=== PATIENT | female | born 2000 | race Asian ===

== ENCOUNTER 2024-01-23 08:34 | Outpatient (CLI) | payer BC, SELFPAY ==
--- NOTE | ~2024-01-23 | US_ITS ---
US breast LT limited DATE: 01/23/2024 09:06 INDICATION: Left breast lump for 2 months TECHNIQUE: Real time imaging and color flow imaging was targeted to the area of clinical complaint of left breast lump 12:00 2 cm from nipple COMPARISON: None FINDINGS: No suspicious mass or shadowing, abnormal vascularity, cyst or other significant abnormalit y is detected at the area of complaint at 12:00 2 cm from nipple. IMPRESSION: Negative Reviewed, dictated and finalized at Location [facility]. Reviewed, dictated and finalized at location A. IMPRESSION: Negative
== END 2024-01-23 08:35 | disposition home or self-care (01) ==
DX: N63.20 Unspecified lump in the left breast, unspecified quadrant (principal)
CPT/HCPCS: 76642

== ENCOUNTER 2025-09-04 14:05 | Outpatient (CLI) | payer BC, SELFPAY ==
--- NOTE | ~2025-09-04 | US_ITS ---
PROCEDURE(S): US breast LT limited INDICATION(S): Palpable abnormality COMPARISON(S): 2023 TECHNIQUE: Grayscale and color Doppler imaging. FINDINGS: No cystic or solid masses are seen in the area(s) of concern. Only dense tissue is seen. IMPRESSION: No significant abnormality is seen sonographically. Negative or inconclusive breast imaging studies should not deter biopsy if there are clinically suspicious palpable abnormalities. BI-RADS 1 - Negative. Reviewed, dictated and finalized at location C. ESS DEVELOPER IMPRESSION: No significant abnormality is seen sonographically. Negative or inconclusive br east imaging studies should not deter biopsy if there are clinically suspicious palpable abnormalities. BI-RADS 1 - Negative.
--- OUTSIDE RECORDS SUMMARY | 2025-09-04 17:02 | XMS_ITS | Data Portability ---
Author Organization [facility] EDA Luisa Marcum Address [address] [place] [address] Care Team Providers Care Supervisor Scenic Arts Name Role Phone HECTOR MOLINA Case Management Rn Assessment No assessment recorded. Plan of Treatment Reminders Order Date Submit Date Provider Last Modified By Organization Details Last Modified Time Details Appointments None record ed. Lab cytolo gy report , thin prep, smear or scrapi ng, cervic al or vagina l 2023 024 [facility], [address] [facility], [address], [place], [address], 4 06:21:39 Referral None record ed. Procedures None record ed. Surgeries None record ed. Imaging US, breast , unilat eral 2024 025 [facility], [address], [address], [place], [address], 5 12:56:01 US, breast , unilat eral 2023 024 [facility], [address], [address], [place], [address], 4 11:26:11 Medication Orders None record ed. Patient TargetsNo targets recorded. Patient InstructionsNo instructions recorded. Reason for Referral None Reported. Results Created Date Observation Date Name Description Value Unit Range Abnormal Flag Note LastModifiedBy Organization Detail LastModifiedTime 04/02/12/28/2023 IGP,C TNGTV ,RFX APTIM A HPV ASCU diagnosis: Eulalio CABALLERO ADEN FOR INTRA EPITH ELIAL ISELA Mohr OR DAVID HILARIO . Not Available [facility] ([facility]) [address], [place], [address], 12/29/2023 06:21:39 12/26/19 24 12/28/2023 IGP,C TNGTV ,RFX APTIM A HPV ASCU specimen adequacy: Eulalio t Satis facto ry for evalu ation . Endoc ervic al and/o r squam ous metap lasti c cells (endo cervi jimi compo nent) are prese nt. Not Available [facility] ([facility]) [address] [place], [address], 12/29/2023 06:21:39 12/26/19 24 12/28/2023 IGP,C TNGTV ,RFX APTIM A HPV ASCU clinician provided ICD10: Eulalio whitlock Z12.4 Not Available [facility] ([facility]) [address] [place], [address], 12/29/2023 06:21:39 12/26/19 24 12/28/2023 IGP,C TNGTV ,RFX APTIM A HPV ASCU performed by: Eloisa Lucio (ASCP ) Not Available [facility] ([facility]) [address] [place], [address], 12/29/2023 06:21:39 12/26/19 24 12/28/2023 IGP,C TNGTV ,RFX APTIM A HPV ASCU . . Not Available [facility] ([facility]) [address] [place], [address], 12/29/2023 06:21:39 12/26/19 24 12/28/2023 IGP,C TNGTV ,RFX APTIM A HPV ASCU note: Commen t The Pap smear is a scree jay test desig shoaib to aid in the detec tion of bahman ligna nt and malig nant condi tions of the uteri ne cervi x. It is not a diagn ostic proce dure and shoul d not be used as the sole means of detec ting cervi jimi cance r. Both false -posi tive and false -nega tive repor ts do occur . Not Available [facility] ([facility]) [address] [place], [address], 12/29/2023 06:21:39 12/26/19 24 12/28/2023 IGP,C TNGTV ,RFX APTIM A HPV ASCU test methodology: Commen t This liqui d based ThinP rep(R ) pap test was scree shoaib with the use of an image guide d syste m. Not Available [facility] ([facility]) [address] [place], [address], 12/29/2023 06:21:39 12/26/19 24 12/28/2023 IGP,C TNGTV ,RFX APTIM A HPV ASCU . Commen t The HPV DNA refle x crite karly were not met with this speci men resul t there fore, no HPV testi ng was perfo rmed. Not Available [facility] ([facility]) [address] [place], [address], 12/29/2023 06:21:39 12/26/19 24 12/28/2023 IGP,C TNGTV ,RFX APTIM A HPV ASCU chlamydia, nuc. acid amp Negati ve negati ve Not Available [facility] ([facility]) [address] [place], [address], 12/29/2023 06:21:39 12/26/19 24 12/28/2023 IGP,C TNGTV ,RFX APTIM A HPV ASCU gonococcus, nuc. acid amp Negati ve negati ve Not Available [facility] ([facility]) [address], [place], [address], 12/29/2023 06:21:39 12/26/19 24 12/28/2023 IGP,C TNGTV ,RFX APTIM A HPV ASCU trich vag by JOHN Negati ve negati ve Not Available [facility] ([facility]) [address], [place], [address], 12/29/2023 06:21:39 01/23/20 24 01/23/2024 US, kartik t, esau tergirish No observ ation record ed. [facility] [address], [place], [address], 01/25/2024 14:24:56 Result Notes None recorded. Problems No Known Problems Medical Equipment None Reported. Allergies No known drug allergies Medications Not known to be on any medication Vitals Date Recorded Body height Body mass index (BMI) Body weight Heart rate Systolic And Diastolic Provider Name and Address Organization Details Last Updated DateTime 12/26/2023 165.1 cm 18.1 kg/m2 01741.57 g 72 /min 112/80 mm[Hg] Sloane Graham MA [facility] 12/26/2023 11:17:26 Date Recorded Body height Body mass index (BMI) Body weight Oxygen saturation Heart rate Systolic And Diastolic Provider Name and Address Organization Details Last Updated DateTime 165.1 cm 20.1 kg/m2 41440.6 8 g 98 % 85 /min 127/79 mm[Hg] Ana Maria Dennison MA [facility] 12:28:54 Social History Question Answer Notes LastModified by Organizat ion Details LastModified Time Tobacco Smoking Status Never Smoker Sloane Graham MA null, [facility] 12/26/2023 11:20:42 Are You Blind Or Do You Have Difficulty Seeing? No Information not available 12/26/2023 What Is Your Level Of Caffeine Consumption? Occasional Information not available 12/26/2023 Are You Deaf Or Do You Have Serious Difficulty Hearing? No Information not available 12/26/2023 What Type Of Diet Are You Following? REGULAR Information not available 12/26/2023 Are There Any Guns Present In Your Home? No Information not available 12/26/2023 What Was The Date Of Your Most Recent Tobacco Screening? 08/01/2025 Information not available 08/01/2025 What Is Your Relationship Status? Single Information not available 12/26/2023 Do You Use Your Seat Belt Or Car Seat Routinely? Yes Information not available 12/26/2023 Are You Sexually Active? Yes Information not available 12/26/2023 Do You Have Smoke And Carbon Monoxide Detectors In Your Home? No Information not available 12/26/2023 Are You Passively Exposed To Smoke? No Information no t available 12/26/2023 Do You Use Sunscreen Routinely? No Information not available 12/26/2023 Has Tobacco Cessation Counseling Been Provided? Yes Information not available 12/26/2023 On What Date Was Tobacco Cessation Counseling Provided? 08/01/2025 Information not available 08/01/2025 Sex: Unknown Functional Status Question Answer Note LastModified by Organizat ion Details LastModified Time Do you use any illicit or recreational drugs? No Information not available 12/26/2023 Do you or have you ever used any other forms of tobacco or nicotine? No Information not available 12/26/2023 What is your level of alcohol consumption? None Information not available 12/26/2023 Do you or have you ever used smokeless tobacco? Never used smokeless tobacco Information not available 12/26/2023 Are you currently employed? No Information not available 12/26/2023 Are you able to care for yourself independently? Yes Information not available 12/26/2023 Do you or have you ever used e-cigarettes or vape? Never used electronic cigarettes Information not available 12/26/2023 What is your exercise level? Occasional Information not available 12/26/2023 Mental Status Question Answer Note LastModified by Organization D etails LastModified Time Do you feel stressed (tense, restless, nervous, or anxious, or unable to sleep at night)? [id number] hiieldnm Information not available 12/26/2023 Family History Relationship Description Onset Age of this Age Resolved Age Notes LastModified by Organization Details LastModified Time Father No current problems or disability [facility] Not available 11:19:43 Mother No current problems or disability [facility] Not available 11:19:44 Medical History Condition Response Anemia Y Gynecological History Statement/Question Response Flow Moderate Date of LMP 07/29/2025 Frequency of Cycle (Q days) 28 Duration of Flow (days) 5 Current Control Method None LMP Definite Obstetrics History GPAL:G 0 P 0 0 0 0 Past Encounters Encounter ID Performer Location Encounter Start Date Encounter Closed Date Diagnosis/Indication Diagnosis SNOMED-CT Code Diagnosis ICD10 Code Diagnosis IMO Codes Diagnosis Note [id number] Teetee Ochoa MD [facility] ([facility]) [address] [place] [address] 12/26/2023 10:50:44 01/01/2024 14:16:02 Gynecologic examination 74678082 Z01.419 Normal gynecologi c exam today.Cerv ical cancer screening: No previous pap screenings . Updated todayBreas t cancer screening: Reviewed recommenda tions for initiation at age 40 with annual screening. Discussed SBEColonos copy: n/aSTI screening: cultures on pap, treat as needed. Safe sex practices discussed. Contracept ion: condomsDie t/exercise : Counseled regarding importance of physical activity, healthy diet and appropriat e calcium intake.RTC in 1yr Screening for malignant neoplasm of cervix 717661710 Z12.4 -No previous pap screenings .-Cervix grossly normal on exam-Pap updated today Mass of left breast 1224 404843 0665428 N63.20 -L breast mass x 1 month. Denies pain, skin changes, nipple discharge. No FMHx breast cancer-PE: ~3 cm non-mobile mass to upper, outer quadrant of R breast. Suspect fibroadeno ma vs fibrocysti c tissue.-Wi ll order breast US to assess. [id number] Teetee Ochoa MD [facility] ([facility] OPERATOR [facility]) [address] [place] [address] 08/01/2025 12:11:58 08/05/2025 09:36:30 Lump in upper outer quadrant of left breast 6237355813 03215 N63.21 [id number] -Exam c/w fibrocysti c changes-Di scussed likely hormonal given recurrence with menses-Dis cussed continued observatio n x 1 month with repeat imaging if no resolution or any changes vs repeat imaging. Pt elects to have repeat imaging. Order provided. Headache 89527796 R51.9 [id number] -Encourage d healthy diet, adequate sleep and hydration, and stress management -Tylenol prn-Encour aged pt to establish care with PCP for further evaluation Cramp in calf 279802445 R25.2 4975008 -Now resolved-E ncouraged adequate hydration- Encouraged pt to establish care with PCP for further evaluation if symptoms return Health Concerns Section Related Observation LastModified by Organization Detai ls LastModified Time None Recorded Concern Status LastModified by Organization Details LastModified Time None Recorded Advance Directives Directive None Recorded Payers Insurance Date Sequence Insurance Name Policy Number Policy Cristina Covered Member ID Cristina Member ID Guarantor Name 08/07/2025 1 [employer] [place] ON [place] AFTER 2020 (MEDICAID REPLACEMENT - HMO) [id number] Sophy Tumma [id number] Sophy Tumma 08/07/2025 1 [employer] - [place] - [place] ([place]) [id number] Sophy Tumma [id number] Sophy Tumma 08/07/2025 2 [place] Sophy Tumma [id number] Sophy Tumma 08/01/2025 2 [employer] AFTER 2020 (MEDICAID REPLACEMENT - HMO) [id number] Sophy Tumma [id number] Sophy Tumma 08/05/2025 1 [employer] - STUDENT PLAN (PPO) [id number] [facility] [id number] [facility] Notes Date Note Type Note Provider Name and Address Organization Details Recorded Time 4 text/html Annual GYNReported by PatientGenitourinary symptomsFor menstrual cycle, patient reportsnormal menses. For urinary symptoms, patient reportsno hematuriaandno incontinence. For vulva, patient reportsno genital lesion. For vagina, patient reportsnormal vaginal discharge.Breast symptomsFor breast, patient reportsbreast lumpbut reportsno breast painandno nipple discharge.Endocrine symptomsFor sexual complaints, patient reportsno sexual complaints,no pain during intercourse, andnormal libido. For menopausal symptoms, patient reportsno menopausal symptomsandnormal vaginal lubrication.Preventative measuresFor preventive measures, patient reportsencourage self breast examination,encourage regular exercise,encourage no tobacco use, andencourage regular mammograms starting age 40. 23 yo G0 presents to establish care. Previously recieving [facility] [place]. States previous [facility] care for anemia. Menses previously very heavy, however, now normal. Denies irregular bleeding, menorrhagia, dysmenorrhea. LMP 12/11/23. Denies hx pap screening. Pt c/o L breast mass x 1 month. Denies pain, skin changes, or nipple discharge. Mass fluctuates in size but has not resolved. Pt went to urgent care ~2 weeks ago for this complaints, was instructed to establish care. Denies any vaginal complaints. Protected intercourse with 1 partner. Denies concern for STI. DIONNA RENTERIA Attn: Accounting,[address] [place], [address], [facility] 12/26/2023 19:17:41 5 text/html ROS as noted in the HPI 25 yo G0 presents for breast complaints. Pt c/o L breast mass x 2 months. States mass is decreasing in size. Denies any pain, skin changes, nipple discharge. Pt states this mass is the same as previously reports at last visit in 2023. States she will periodically notices this mass (same location each time) prior to menses. Mass will persist x ~2 months and resolved. Previously imaging was normal. Pt also c/o recent calf pain bilaterally. Describes a cramping sensation in her calves that was worse at night. This is now resolved. Pt c/o frequency headaches. States headaches are worse with increased stress, poor diet, and lack of sleep. Reports no issues with headaches when eating healthy, hydrating, sleeping well, and managing stress. EXAM:dense fibrocystic tissue to upper L breast. No discernable abnormal mass. no other findings. discussed suspect hormonal. discussed since resolving, continued observation x 1 month with imaging if fails to resolve or symptoms worsen vs imaging ordered today for reassurance. pt elects imagingdenies caffeine, chocolate intake, wear supportive bras DIONNA RENTERIA Attn: Accounting,[address] [facility], [place], [address], [facility] 08/04/2025 14:04:18 OBGyn Episode No OBEpisode recorded.
--- OUTSIDE RECORDS SUMMARY | 2025-09-04 17:02 | XMS_ITS | Continuity of Care Document ---
Author Organization [facility], Kenna Hitchcockjeff jesse (PRACTICE MANAGER) Address [address] [place] [address] Care Team Providers Care Clin Application Specialist Name Role Phone HECTOR MOLINA Caterer Helper Assessment No assessment recorded. Plan of Treatment Reminders Order Date Submit Date Provider Last Modified By Organization Details Last Modified Time Details Appointments None record ed. Lab None record ed. Referral None record ed. Procedures None record ed. Surgeries None record ed. Imaging US, breast , unilat eral 2024 025 [facility], [address], [place] [address], [place], [address], 12:56:01 Medication Orders None record ed. Patient TargetsNo targets recorded. Patient InstructionsNo instructions recorded. Reason for Referral None Reported. Problems No Known Problems Medical Equipment None Reported. Allergies No known drug allergies Medications Not known to be on any medication Vitals Date Recorded Body height Body mass index (BMI) Body weight Oxygen saturation Heart rate Systolic And Diastolic Provider Name and Address Organization Details Last Updated DateTime 165.1 cm 20.1 kg/m2 59981.6 8 g 98 % 85 /min 127/79 mm[Hg] Ana Maria Dennison MA [facility] 12:28:54 Social History Question Answer Notes LastModified by Organizat ion Details LastModified Time Tobacco Smoking Status Never Smoker ELYES Edwards, [facility] 12/26/2023 11:20:42 Are You Blind Or [...] anxious, or unable to sleep at night)? [id number] Information not available 12/26/2023 Family History Relationship Description Onset Age of this Age Resolved Age Notes LastModified by Organization Details LastModified Time Father No current problems or disability [email or web address] Not available 11:19:43 Mother No current problems or disability [email or web address] Not available 11:19:44 Medical History Condition Response [...] ICD10 Code Diagnosis IMO Codes Diagnosis Note [id number] Teetee Ochoa MD [facility] (PRACTICE MANAGER) [address] [place] [address] 08/01/2025 12:11:58 08/05/2025 09:36:30 Lump in upper outer quadrant of left breast 4657232790 13963 N63.21 [id number] -Exam c/w fibrocysti c changes-Di scussed likely hormonal given recurrence with menses-Dis cussed continued observatio n x 1 month with repeat imaging if no resolution or any changes vs repeat imaging. Pt elects to have repeat imaging. Order provided. Headache 77894654 R51.9 [id number] -Encourage d healthy diet, adequate sleep and hydration, and stress management -Tylenol prn-Encour aged pt to establish care with PCP for further evaluation Cramp in calf 897017059 R25.2 3844702 -Now resolved-E ncouraged adequate hydration- Encouraged pt to establish care with PCP for further evaluation if symptoms return Health Concerns Section Related Observation LastModified by Organization Detai ls LastModified Time None Recorded Concern Status LastModified by Organization Details LastModified Time None Recorded Payers Encounter Date Sequence Insurance Name Policy Number Policy Cristina Covered Member ID Cristina Member ID Guarantor Name 08/01/2025 1 [employer] - STUDENT PLAN (PPO) [id number] Sophy Montoya [id number] Sophy Montoya 08/01/2025 1 [employer] BET[place] - [place] ON [place] AFTER 2020 (MEDICAID REPLACEMENT - HMO) [id number] Sophy Montoya [id number] Sophy Montoya Notes Date Note Type Note Provider Name and Address Organization Details Recorded Time 08/01/2025 text/html ROS as noted in the HPI [...] intake, wear supportive bras DIONNA RENTERIA Attn: Accounting,[address] [facility], [place], [address], [facility] 08/04/2025 14:04:18 OBGyn Episode No OBEpisode recorded.
== END 2025-09-04 14:06 | disposition home or self-care (01) ==
LOC: ANHFOHIMG 14:09
PROVIDERS: Visit Provider Physician Assistant Medical
DX: N63.21 Unspecified lump in the left breast, upper outer quadrant (principal)
CPT/HCPCS: 76642